=== PATIENT | female | born 1965 | race Two or more races ===

== ENCOUNTER 2017-09-12 12:49 | Emergency (ER) | payer OTHER, BC ==
[2017-09-12 13:09] VITALS: BP 146/84; PULSE 79; TEMP 97.5; BMI 34.0
[2017-09-12] MEDS ORDERED: IBUPROFEN 600 MG TABLET (FP) PO ONE ×2 (14:06→14:07)
--- NOTE | 2017-09-12 15:00 | PDOC ---
History of Present Illness - General Chief Complaint: Injury Stated Complaint: FALL/ LT LEG PAIN Time Seen by Provider: 09/12/17 14:03 History Source: Patient Exam Limitations: No Limitations - History of Present Illness Initial Comments: 09/12/17 14:55 51 yr female slipped and fell at work injured her left knee and left hip no head trauma no loc. pt is able to ambulate freely. Pt has history of "bad left knee". Severity: reports: mild Pain Location: reports: none Loss of Consciousness: no loss of consciousness Past History - Past Medical History Allergies/Adverse Reactions: Allergies Allergy/AdvReac Type Severity Reaction Status Date / Time latex Allergy Intermediate Hives Verified 09/12/17 13:06 Penicillins Allergy Intermediate Rash Verified 09/12/17 13:06 Home Medications: Ambulatory Orders Montelukast Na [Singulair -] 10 mg PO HS 02/17/14 Albuterol Sulfate [Proventil HFA Inhaler -] 1 - 2 inh PO TID 09/12/17 Salmeterol/Fluticasone [Advair 100Mcg/50Mcg -] 1 inh PO BID 09/12/17 Asthma: Yes COPD: No - Suicide/Smoking/Psychosocial Hx Smoking History: Never smoked Hx Alcohol Use: Yes (SOCIAL) Substance Use Type: None Trauma Specific PMHX - Complaint Specific PMHX Arthritis: No Back Injury: No Neck Injury: No Hx Sacro Iliac Joint Dysfunction: No Review of Systems - Review of Systems Able to Perform ROS?: Yes Is the patient limited Icelandic proficient: No Musculoskeletal: Yes: Symptoms Reported *Physical Exam - Vital Signs Last Vital Signs Temp Pulse Resp BP Pulse Ox 97.5 F L 79 19 146/84 99 09/12/17 13:06 09/12/17 13:06 09/12/17 13:06 09/12/17 13:06 09/12/17 13:06 - Physical Exam General Appearance: Yes: Nourished, Appropriately Dressed HEENT: positive: EOMI, LENCHO Neck: positive: Supple. negative: Tender Respiratory/Chest: positive: Lungs Clear, Normal Breath Sounds Cardiovascular: positive: Regular Rhythm, Regular Rate Musculoskeletal: positive: Normal Inspection, Other (tender to touch left patella, mild erythema noted skin intact no swelling FROM of the knee joint, left inguinal area with pain with abduction at the hip, no swelling or bruising ) Extremity: positive: Normal Capillary Refill, Normal Inspection, Normal Range of Motion Integumentary: positive: Normal Color, Dry, Warm Neurologic: positive: Fully Oriented, Alert, Normal Mood/Affect, Normal Response , Motor Strength 02/14 ED Treatment Course - RADIOLOGY Radiology Studies Ordered: Category Date Time Status HIP-LEFT [RAD] Stat Radiology 09/12/17 14:06 Completed KNEE 3 POS-LEFT [RAD] Stat Radiology 09/12/17 14:06 Completed - Medications Given in the ED: ED Medications Discontinued Medications Generic Name Dose Route Start Last Admin Trade Name Peterson PRN Reason Stop Dose Admin Ibuprofen 600 mg 09/12/17 14:06 09/12/17 14:11 Motrin - PO 09/12/17 14:07 600 mg ONCE ONE Administration Medical Decision Making - Medical Decision Making 09/12/17 18:18 cc: slip on applesauce on the floor and "did a split" on the floor injured left knee and left hip pt ambualting freely will get xray to r/o fracture dc inst given verbally to pt who understands the plan of care all questions asked and answered at discharge. *DC/Admit/Observation/Transfer Diagnosis at time of Disposition: Knee pain Qualifiers: Chronicity: acute Laterality: left Qualified Code(s): M25.562 - Pain in left knee - Discharge Dispostion Disposition: HOME Condition at time of disposition: Good - Referrals Referrals: Dylan Pena MD [Primary Care Provider] - Arie Silverman MD [Staff Physician] - - Patient Instructions Additional Instructions: follow with your orthopedist for follow up you can place ice every 2hrs for 20 minutes for pain while awake take motrin 600mg every 6hrs for pain as needed return if any worsening symptoms - Post Discharge Activity Forms/Work/School Notes: Back to Work
== END 2017-09-12 15:07 | disposition home or self-care (01) ==
LOC: JERFT 12:49
DX: S79.812A Other specified injuries of left hip, initial encounter (principal); S89.82XA Other specified injuries of left lower leg, initial encounter; W01.0XXA Fall on same level from slipping, tripping and stumbling without subsequent striking against object, initial encounter; Y93.89 Activity, other specified; Y92.218 Other school as the place of occurrence of the external cause; Y99.0 Civilian activity done for income or pay
CPT/HCPCS: 73502-TC-LT; 73562-TC-LT; 99281-25

== ENCOUNTER 2019-04-09 06:36 | Day surgery (SDC) | payer OTHER ==
[2019-04-06 13:47] VITALS: BMI 40.0
[2019-04-09] MEDS ORDERED: BUPIVACAINE HCL 0.25% 125 MG/50 ML VIAL ONE (07:15)
[2019-04-09] MEDS ORDERED: EPINEPHrine 1:1,000 1 MG/1 ML - 30ML VIAL (INJECTION) ONE (07:15)
[2019-04-09] MEDS ORDERED: LIDOCAINE HCL/PF 2% SDV 5ML VIAL ONE (08:54)
[2019-04-09] MEDS ORDERED: ONDANSETRON 4 MG/2 ML VIAL ONE (08:54)
[2019-04-09] MEDS ORDERED: DEXAMETHASONE SOD PHOSPHATE 4 MG/1 ML VIAL ONE (08:54)
[2019-04-09] MEDS ORDERED: CLINDAMYCIN PHOSPHATE 600 MG/4 ML VIAL ONE (09:07)
[2019-04-09] MEDS ORDERED: GLYCOPYRROLATE 0.2 MG/1 ML VIAL ONE (09:08)
[2019-04-09] MEDS ORDERED: KETOROLAC TROMETHAMINE 30 MG/1 ML VIAL ONE (09:08)
[2019-04-09] MEDS ORDERED: ONDANSETRON 4 MG/2 ML VIAL IVPUSH PRN (09:23)
[2019-04-09] MEDS ORDERED: oxyCODONE HCL 5 MG TABLET PO PRN ×2 (09:23)
[2019-04-09] MEDS ORDERED: ACETAMINOPHEN 1000 MG/100 ML VIAL (NON FORMULARY) IVPB ONE (09:27)
[2019-04-09] MEDS ORDERED: LACTATED RINGERS SOLUTION 1,000 ML IV SCH (09:30)
[2019-04-09 11:02] VITALS: TEMP 98
[2019-04-09 11:17] VITALS: BP 118/71; PULSE 75
--- NOTE | 2019-04-10 07:15 | OP ---
DATE OF OPERATION: 04/09/2019 SURGEON: Uriel Campos MD ASSISSTANT: BRYAN Beckham PREOPERATIVE DIAGNOSIS: 1. Left knee medial and lateral meniscal tears. 2. Left right knee cartilage injury. 3. Left knee synovitis. POSTOPERATIVE DIAGNOSIS: 1. Left knee medial and lateral meniscal tears. 2. Left right knee cartilage injury. 3. Left knee synovitis. PROCEDURE: 1. Left knee arthroscopy with partial meniscectomies of medial and lateral meniscus (CPT code 91324). 2. Left knee arthroscopy with chondroplasty and abrasoplasty (CPT code 71439). 3. Left knee arthroscopy with synovectomy (CPT code 01948). FINDINGS: 1. Medial meniscus body and posterior horn tear, posterior 50%. 2. Lateral meniscus posterior horn tear. 3. Synovitis patellofemoral and medial lateral notch area with large medial plica. 4. Medial 1/3 femoral condyle, tibial plateau grade 4 changes with central grade 3-4 changes and lateral 1/3 grade 1-2 changes. ACL and PCL intact. 5. Minor grade 2 changes posterior medial portion, lateral tibial plateau 6. Central grade 2 cartilage injury patella with grade 2-4 changes, patellofemoral, trochlea. DESCRIPTION OF PROCEDURE: Informed consent was obtained. The patient came to the operating room, where the lower extremity was prepped and draped in a sterile fashion. A tourniquet was placed on the upper thigh, but not inflated. Using standard arthroscopic technique, a lateral incision and portal was made to allow for introduction of the camera into the suprapatellar bursa. This was then taken to the medial joint line, where under direct visualization, a medial incision and portal was made. Excessive synovium noted in the medial, lateral and patellofemoral and notch area was removed by an upbiter, shaver and Bovie cautery. This was found to bring in inflammatory tissue into the joint surface, a source of pain and dysfunction. Probing of the medial and lateral meniscus found tears, as described in the findings. These were removed with the upbiter and shaver and taken back to a stable rim. Grade 2 to 3 degenerative changes were treated with a chondroplasty, removing all flaking surfaces with low-setting Bovie along the periphery to prevent further flaking. Grade 4 changes, as noted, were treated with an abrasoplasty, creating a bleeding surface at the bone/cartilage interface. Aggressive debridement with shaver/alonso created bleeding surface. Micro fracture also done when indicated in findings. All areas of the knee were once again reexamined. The knee was then drained and a single suture was placed in all portals. A sterile dressing was placed and the patient was transferred to the recovery room without complication. The PA listed above was present and assisted at surgery. Their presence was absolutely medically necessary for the completion of the procedure. They helped hold the arthroscopy, pass instruments (and implants when indicated) and the procedure could not have been completed without their assistance. URIEL CAMPOS M.D. [id number]
--- NOTE | 2019-04-14 16:32 | PATH ---
Surgical Pathology Report Patient Name: SELINA LOYA Med. Rec. #: [id number] /Age/Gender: 1965 (Age: 53) / F Account: [id number] Location: [facility] Taken: 04/09/2019 Received: 04/09/2019 Reported: 04/14/2019 Physicians: Uriel Casillas M.D. Specimen(s) Received SHAVINGS LEFT KNEE Clinical History Derangement left knee Final Diagnosis KNEE, LEFT, ARTHROSCOPIC SHAVINGS: FIBROSYNOVIAL TISSUE AND CARTILAGE. Electronically Signed Landy Mckenzie M.D. Gross Description Received in formalin, labeled "left knee shavings," is a 4.0 x 4.0 x 0.4 cm. aggregate of arshad-yellow soft tissue fragments. A sales representative graphic art portion is submitted in one cassette. /04/12/201904/12/2019
== END 2019-04-09 11:22 | disposition home or self-care (01) ==
LOC: FASU 06:36
PROVIDERS: ATTEND Orthopaedic Surgery
PROC: 0SBD4ZZ Excision of Left Knee Joint, Percutaneous Endoscopic Approach (ICD-10-PCS; 2019-04-09)
PROC: 0SBD4ZZ Excision of Left Knee Joint, Percutaneous Endoscopic Approach (ICD-10-PCS; 2019-04-09)
PROC: 0SBD4ZZ Excision of Left Knee Joint, Percutaneous Endoscopic Approach (ICD-10-PCS; principal; 2019-04-09 09:16)
DX: S83.242A Other tear of medial meniscus, current injury, left knee, initial encounter (principal); S83.282A Other tear of lateral meniscus, current injury, left knee, initial encounter; S83.8X2A Sprain of other specified parts of left knee, initial encounter; M65.862 Other synovitis and tenosynovitis, left lower leg; X58.XXXA Exposure to other specified factors, initial encounter; Y93.89 Activity, other specified; Y92.89 Other specified places as the place of occurrence of the external cause
CPT/HCPCS: 88304-TC; 94760; J0131

== ENCOUNTER 2023-05-13 16:33 | Observation (INO) | payer BC, OTHER ==
[2023-05-13 19:44] LABS: BASO % 0.7 % (0-2.0); EOS % 7.1 % (0-4.5); HEMATOCRIT 39.8 % (32.4-45.2); HEMOGLOBIN 13.6 GM/dL (10.7-15.3); LYMPH % 36.2 % (8-40); MCH 29.9 pg (25.7-33.7); MCHC 34.1 g/dl (32.0-36.0); MEAN CELL VOLUME 87.9 fl (80-96); MEAN PLT VOLUME 7.5 fl (7.5-11.1); MONO % 6.4 % (3.8-10.2); NEUT % 49.6 % (42.8-82.8); PLATELET COUNT 246 10^3/uL (134-434); RBC 4.53 M/mm3 (3.60-5.2); WHITE BLOOD COUNT 7.4 K/mm3 (4.0-10.0)
[2023-05-13 19:56] LABS: INR 1.12 (0.83-1.09)
[2023-05-13 19:57] LABS: CHLORIDE 119 mmol/L (98-107); SODIUM 146 mmol/L (136-145)
[2023-05-13 19:59] LABS: ACTIVATED PTT 36.1 SECONDS (25.2-36.5)
[2023-05-13 20:00] LABS: ALBUMIN 2.3 g/dl (3.4-5.0); BLOOD UREA NITROGEN 9.5 mg/dL (7-18); CO2 21 mmol/L (21-32); GLUCOSE,RANDOM 134 mg/dL (74-106)
[2023-05-13 20:03] LABS: CREATININE 0.4 mg/dL (0.55-1.3); SGOT/AST 16 U/L (15-37); SGPT/ALT 23 U/L (13-61)
[2023-05-13 20:05] LABS: BILIRUBIN,TOTAL 0.3 mg/dL (0.2-1); TOT PROT 4.7 g/dl (6.4-8.2)
[2023-05-13 20:06] LABS: ALK PHOS 64 U/L (45-117)
[2023-05-13 20:20] LABS: ANION GAP 6 MMOL/L (8-16); CALCIUM 6.2 mg/dL (8.5-10.1); POTASSIUM 2.4 mmol/L (3.5-5.1)
[2023-05-13] MEDS ORDERED: POTASSIUM CHLORIDE TABS 20 MEQ TABLET.ER (FP) PO ONE (20:27)
[2023-05-13] MEDS ORDERED: POTASSIUM CHLORIDE ORAL LIQUID 20 MEQ/15 ML PO ONE (20:30)
[2023-05-13] MEDS ORDERED: POTASSIUM CHLORIDE ORAL LIQUID 20 MEQ/15 ML ONE (20:33)
[2023-05-13] MEDS ORDERED: KCL 10 MEQ IVPB 30 MEQ/300 ML INFUS.BAG IVPB ONE (20:33)
[2023-05-13] MEDS: KCL 10 MEQ IVPB 10 MEQ/100 ML INFUS.BAG IVPB SCH ×3 (21:00→23:00)
[2023-05-13 21:01] LABS: MAGNESIUM 1.4 mg/dL (1.8-2.4)
[2023-05-13] MEDS ORDERED: MAGNESIUM SULF 50% (8.12 MEQ/2 ML-1 GM VIAL) IVPB ONE (22:26)
[2023-05-13] MEDS ORDERED: MAGNESIUM SULFATE IN WATER 2 GM/50 ML IVPB IVPB ONE (22:33)
[2023-05-14 00:53] LABS: CHLORIDE 108 mmol/L (98-107); SODIUM 141 mmol/L (136-145)
[2023-05-14 00:53] LABS: PHOSPHOROUS 2.2 mg/dL (2.5-4.9)
[2023-05-14 00:56] LABS: ANION GAP 5 MMOL/L (8-16); BLOOD UREA NITROGEN 9.8 mg/dL (7-18); CO2 28 mmol/L (21-32); GLUCOSE,RANDOM 136 mg/dL (74-106); MAGNESIUM 2.6 mg/dL (1.8-2.4)
[2023-05-14 00:59] LABS: CREATININE 0.7 mg/dL (0.55-1.3); PHOSPHOROUS 2.8 mg/dL (2.5-4.9); SGOT/AST 21 U/L (15-37); SGPT/ALT 33 U/L (13-61)
[2023-05-14 01:00] LABS: TOT PROT 6.4 g/dl (6.4-8.2)
[2023-05-14 01:01] LABS: BILIRUBIN,TOTAL 0.6 mg/dL (0.2-1)
[2023-05-14 01:02] LABS: ALK PHOS 91 U/L (45-117)
[2023-05-14 01:27] LABS: ALBUMIN 3.2 g/dl (3.4-5.0); CALCIUM 8.5 mg/dL (8.5-10.1)
[2023-05-14 02:04] VITALS: BMI 37.3
[2023-05-14] MEDS: INSULIN SLIDING SCALE (NOVOLOG) 1 VIAL SQ SCH ×4 (06:16→21:39)
[2023-05-14 09:05] LABS: HEMATOCRIT 42.5 % (32.4-45.2); HEMOGLOBIN 13.8 GM/dL (10.7-15.3); MCH 29.1 pg (25.7-33.7); MCHC 32.5 g/dl (32.0-36.0); MEAN CELL VOLUME 89.4 fl (80-96); MEAN PLT VOLUME 7.9 fl (7.5-11.1); PLATELET COUNT 235 10^3/uL (134-434); RBC 4.75 M/mm3 (3.60-5.2); RDW 14.5 % (11.6-15.6)
[2023-05-14 09:23] LABS: POTASSIUM 4.3 mmol/L (3.5-5.1)
[2023-05-14 09:26] LABS: MAGNESIUM 2.4 mg/dL (1.8-2.4)
[2023-05-14 09:27] LABS: BLOOD UREA NITROGEN 8.8 mg/dL (7-18)
[2023-05-14 09:28] LABS: CREATININE 0.6 mg/dL (0.55-1.3)
[2023-05-14 09:30] LABS: BILIRUBIN,TOTAL 0.6 mg/dL (0.2-1); TOT PROT 6.4 g/dl (6.4-8.2)
[2023-05-14 09:38] LABS: ALBUMIN 3.2 g/dl (3.4-5.0); CALCIUM 8.6 mg/dL (8.5-10.1)
[2023-05-14 09:43] LABS: MAGNESIUM 2.4 mg/dL (1.8-2.4)
[2023-05-14 09:46] LABS: PHOSPHOROUS 2.9 mg/dL (2.5-4.9)
[2023-05-14] MEDS ORDERED: ALBUTEROL SO4 HFA INHALER IH PRN (09:50)
[2023-05-14] MEDS ORDERED: ENOXAPARIN NA (PORCINE) 40 MG/0.4 ML DISP.SYRIN SQ SCH (10:00)
[2023-05-14] MEDS ORDERED: FAMOTIDINE 40 MG TABLET PO SCH (10:00)
[2023-05-14] MEDS ORDERED: amLODIPine BESYLATE 5 MG TABLET (FP) PO SCH (10:00)
[2023-05-14] MEDS ORDERED: PATIENT'S OWN MEDICATION (NON-FORMULARY) (Dapagliflozin Propanediol 10 MG Tablet) PO SCH (10:00)
[2023-05-14] MEDS: metFORMIN HCL 500 MG TABLET (FP) PO SCH (11:38)
[2023-05-14] MEDS: BUDESONIDE/FORMETEROL FUMARATE 160/4.5 mcg INHALER IH SCH ×2 (11:39→21:41)
[2023-05-14] MEDS: MONTELUKAST NA 10 MG TABLET PO SCH ×2 (11:39→21:02)
[2023-05-14 12:27] LABS: ERYTHROCYTE SEDIMENTATION RATE 2 mm/hr (0-30)
[2023-05-14] MEDS ORDERED: IBUPROFEN 600 MG TABLET (FP) PO ONE (15:15)
[2023-05-14 18:14] VITALS: RESP 18
[2023-05-14] MEDS ORDERED: ROSUVASTATIN CA 10 MG TABLET PO SCH (22:00)
[2023-05-15 06:24] VITALS: BP 111/66; PULSE 75; TEMP 97.6
[2023-05-15] MEDS: INSULIN SLIDING SCALE (NOVOLOG) 1 VIAL SQ SCH (06:40)
[2023-05-15] MEDS: metFORMIN HCL 500 MG TABLET (FP) PO SCH (06:40)
[2023-05-15 09:21] LABS: BASO % 0.5 % (0-2.0); EOS % 6.8 % (0-4.5); HEMATOCRIT 40.4 % (32.4-45.2); MCH 30.3 pg (25.7-33.7); MCHC 34.6 g/dl (32.0-36.0); MEAN CELL VOLUME 87.4 fl (80-96); MEAN PLT VOLUME 7.7 fl (7.5-11.1); MONO % 6.7 % (3.8-10.2); PLATELET COUNT 248 10^3/uL (134-434); RBC 4.62 M/mm3 (3.60-5.2); RDW 14.9 % (11.6-15.6); WHITE BLOOD COUNT 5.7 K/mm3 (4.0-10.0)
[2023-05-15 09:58] LABS: ALBUMIN 3.2 g/dl (3.4-5.0); BLOOD UREA NITROGEN 12.1 mg/dL (7-18); CALCIUM 8.6 mg/dL (8.5-10.1); MAGNESIUM 2.1 mg/dL (1.8-2.4)
[2023-05-15 09:59] LABS: BILIRUBIN,TOTAL 0.4 mg/dL (0.2-1)
[2023-05-15 10:00] LABS: TOT PROT 6.6 g/dl (6.4-8.2)
[2023-05-15 10:01] LABS: CREATININE 0.5 mg/dL (0.55-1.3); PHOSPHOROUS 3.6 mg/dL (2.5-4.9)
[2023-05-19 16:07] LABS: ATYPICAL pANCA <1:20 titer (Neg:<1:20); C-ANCA <1:20 titer (Neg:<1:20)
== END 2023-05-15 08:27 | disposition home or self-care (01) ==
LOC: JER 16:33 → JERBED 21:45 → J4W 05-14 01:41
PROVIDERS: ADMIT Internal Medicine; ATTEND Internal Medicine
PROC: 3E023GC Introduction of Other Therapeutic Substance into Muscle, Percutaneous Approach (ICD-10-PCS; principal; 2023-05-13)
PROC: 3E033GC Introduction of Other Therapeutic Substance into Peripheral Vein, Percutaneous Approach (ICD-10-PCS; 2023-05-13)
PROC: 3E0337Z Introduction of Electrolytic and Water Balance Substance into Peripheral Vein, Percutaneous Approach (ICD-10-PCS; 2023-05-13)
DX: D69.2 Other nonthrombocytopenic purpura (principal); E11.9 Type 2 diabetes mellitus without complications; I10 Essential (primary) hypertension; Z96.652 Presence of left artificial knee joint; M19.90 Unspecified osteoarthritis, unspecified site; L40.9 Psoriasis, unspecified; Z88.0 Allergy status to penicillin; W18.39XA Other fall on same level, initial encounter; Y93.89 Activity, other specified; Y92.89 Other specified places as the place of occurrence of the external cause; Z91.040 Latex allergy status
CPT/HCPCS: 36415; 71046-TC-FY; 80048; 80053; 82306; 82595; 82962; 83520; 83735; 83970; 84100; 85025; 85027; 85610; 85651; 85730; 86038; 86140; 86256; 87799; 87902; 99285-25; G0378